=== PATIENT | female | born 1950 | race African-American/Black ===

== ENCOUNTER 2018-04-05 12:37 | Inpatient (IN) | payer MEDICARE, MEDICAID ==
[~2018-04-05] VITALS: Ht 162.6 cm; Wt 79.8 kg
[2018-04-05] MEDS ORDERED: AZITHROMYCIN 500MG/ 250ML 250 ML IV ONE (14:30)
[2018-04-05] MEDS ORDERED: FUROSEMIDE 40 MG/4 ML VIAL IV ONE ×2 (14:30→16:45)
[2018-04-05] MEDS ORDERED: cefTRIAXone 1GM/10ml IVPUSH 10 ML IV ONE (14:30)
[2018-04-05 14:42] LABS: Basophils # (auto) 0 uL; Eosinophils # (auto) 0 uL; Eosinophils % (auto) 0.1 % (0.0-7.0); Hemoglobin 11.8 g/dL (12.2-16.2); Lymphocytes # (auto) 1.2 uL; Neutrophils # (auto) 8.3 uL
[2018-04-05 14:44] LABS: Basophils % (auto) 0.3 % (0.0-2.0); Hematocrit 37.3 % (36.0-46.0); Lymphocytes % (auto) 11.3 % (10.0-50.0); Mean Corpuscular Hemoglobin 25.4 pg (28.0-32.0); Mean Corpuscular Hgb Conc. 31.7 g/dL (32.0-36.0); Mean Corpuscular Volume 80.2 fL (80.0-100.0); Monocytes % (auto) 9.6 % (0.0-12.0); Neutrophils % (auto) 78.7 % (37.0-80.0); Nucleated Red Blood Cells % 0.1 %; Platelet Count (auto) 314 10^3/uL (140-450); Red Blood Cells 4.65 10^6/uL (4.0-5.20); Red Cell Distribution Width 16.7 % (11.8-14.3); White Blood Cell 10.6 10^3/uL (4.4-10.8)
[2018-04-05 14:58] LABS: Potassium 3.9 mmol/L (3.5-5.1)
[2018-04-05 15:03] LABS: Albumin 2.9 g/dL (3.4-5.0); BUN/Creatinine Ratio 20.8; Calcium 8.5 mg/dL (8.5-10.1); Magnesium 2.4 mg/dL (1.6-2.6)
[2018-04-05 15:22] LABS: Bilirubin, Total 0.8 mg/dL (0.2-1.0); Total Protein 6.8 g/dL (6.4-8.2)
[2018-04-05] MEDS ORDERED: ENOXAPARIN SOD 80 MG/0.8ML SYRINGE SC ONE ×2 (16:00→16:45)
[2018-04-05] MEDS ORDERED: MORPHINE SULFATE 4 MG/ML SYR/VIAL IV PRN ×2 (16:15)
[2018-04-05] MEDS ORDERED: ALUM & MAG HYDROX-SIMETH LIQ(MAALOX) 30 ML PO ONE (16:15)
[2018-04-05] MEDS ORDERED: LORazepam 0.5 MG TAB PO PRN (16:15)
[2018-04-05] MEDS ORDERED: ONDANSETRON HCL 4 MG/2 ML VIAL IV PRN (16:15)
[2018-04-05] MEDS ORDERED: ZOLPIDEM TARTRATE 5 MG TAB PO PRN (16:15)
[2018-04-05] MEDS ORDERED: ACETAMINOPHEN 325 MG TAB PO PRN (16:15)
[2018-04-05] MEDS ORDERED: NITROGLYCERIN 0.4 MG SL TAB SL PRN ×2 (16:15)
[2018-04-05] MEDS ORDERED: ENALAPRIL MALEATE 2.5 MG TAB PO ONE (16:45)
[2018-04-05] MEDS ORDERED: POTASSIUM CHL 10 Meq TABLET PO ONE (16:45)
[2018-04-05] MEDS ORDERED: DOCUSATE SOD 100 MG CAP PO ONE (16:45)
[2018-04-05] MEDS ORDERED: ASPirin 81 mg TAB PO ONE (16:45)
[2018-04-05] MEDS ORDERED: cloNIDine HCL 0.1 MG TAB PO PRN (16:45)
[2018-04-05] MEDS ORDERED: CARVEDILOL 3.125 MG TAB PO ONE (16:45)
[2018-04-05] MEDS ORDERED: CLOPIDOGREL BISULFATE 75 MG TAB PO ONE (16:45)
[2018-04-05] MEDS: IPRATROPIUM BROM 0.5 MG/2.5ML INH SOL NEB SCH (18:10)
[2018-04-05] MEDS: ALBUTEROL SULF 2.5 MG/0.5ML(0.5%) NEB SOLN NEB SCH (18:10)
[2018-04-05] MEDS: FUROSEMIDE 40 MG/4 ML VIAL IV SCH (18:25)
[2018-04-05] MEDS: Ensure Enlive Strawberry 8oz Bottle PO SCH (18:30)
[2018-04-05 19:56] VITALS: BP 156/92
[2018-04-05 20:59] LABS: Urine Bacteria NONE SEEN /hpf (None Seen); Urine Blood Negative /uL (Negative); Urine Specific Gravity 1.004 (1.001-1.035); Urine WBC <1 /hpf (0 - 5)
[2018-04-05 21:21] LABS: INR 1.13 (0.9-1.15)
[2018-04-05] MEDS ORDERED: ENOXAPARIN SOD 80 MG/0.8ML SYRINGE SC SCH (22:00)
[2018-04-05] MEDS: SODIUM CHLOR 0.9% PF (SALINE LOCK) 10ML VIAL/SYR IV SCH (22:00)
[2018-04-05] MEDS: POTASSIUM CHL 10 Meq TABLET PO SCH (22:48)
[2018-04-05] MEDS: ATORVASTATIN 20 MG TAB PO SCH (22:48)
[2018-04-05] MEDS: ENALAPRIL MALEATE 2.5 MG TAB PO SCH (22:49)
[2018-04-05] MEDS: CARVEDILOL 3.125 MG TAB PO SCH (22:49)
[2018-04-06] VITALS (20 sets, daily range): BP systolic 116–151; BP diastolic 59–97
[2018-04-06] MEDS: IPRATROPIUM BROM 0.5 MG/2.5ML INH SOL NEB SCH ×4 (01:06→19:28)
[2018-04-06] MEDS: ALBUTEROL SULF 2.5 MG/0.5ML(0.5%) NEB SOLN NEB SCH ×3 (01:06→12:00)
[2018-04-06 05:31] LABS: Basophils # (auto) 0 uL; Mean Corpuscular Hemoglobin 25.3 pg (28.0-32.0); Mean Corpuscular Volume 79.7 fL (80.0-100.0); Monocytes # (auto) 0.9 uL; Neutrophils # (auto) 6.9 uL; Nucleated Red Blood Cells % 0.1 %; Red Blood Cells 4.52 10^6/uL (4.0-5.20)
[2018-04-06 05:34] LABS: Basophils % (auto) 0.1 % (0.0-2.0); Eosinophils # (auto) 0 uL; Eosinophils % (auto) 0.5 % (0.0-7.0); Hematocrit 36.1 % (36.0-46.0); Hemoglobin 11.5 g/dL (12.2-16.2); Lymphocytes # (auto) 1.2 uL; Mean Corpuscular Hgb Conc. 31.8 g/dL (32.0-36.0); Neutrophils % (auto) 76.4 % (37.0-80.0); Platelet Count (auto) 282 10^3/uL (140-450); Red Cell Distribution Width 16.6 % (11.8-14.3)
[2018-04-06] MEDS: SODIUM CHLOR 0.9% PF (SALINE LOCK) 10ML VIAL/SYR IV SCH ×3 (06:05→21:20)
[2018-04-06] MEDS: FUROSEMIDE 40 MG/4 ML VIAL IV SCH ×2 (06:06→18:08)
[2018-04-06 06:08] LABS: Albumin 2.7 g/dL (3.4-5.0); BUN/Creatinine Ratio 24.6; Bilirubin, Total 0.6 mg/dL (0.2-1.0); Calcium 8.8 mg/dL (8.5-10.1); Magnesium 2.2 mg/dL (1.6-2.6); Potassium 4.3 mmol/L (3.5-5.1); Total Protein 6.3 g/dL (6.4-8.2)
[2018-04-06] MEDS: Ensure Enlive Strawberry 8oz Bottle PO SCH ×3 (08:00→18:00)
[2018-04-06] MEDS ORDERED: cefTRIAXone 1GM/10ml IVPUSH 10 ML IV SCH (09:00)
[2018-04-06] MEDS ORDERED: CLOPIDOGREL BISULFATE 75 MG TAB PO SCH (10:00)
[2018-04-06] MEDS ORDERED: DOCUSATE SOD 100 MG CAP PO SCH (10:00)
[2018-04-06] MEDS ORDERED: AZITHROMYCIN 500MG/ 250ML 250 ML IV SCH (10:00)
[2018-04-06] MEDS: ASPirin 81 mg TAB PO SCH (10:07)
[2018-04-06] MEDS: CARVEDILOL 3.125 MG TAB PO SCH (10:08)
[2018-04-06] MEDS: POTASSIUM CHL 10 Meq TABLET PO SCH ×2 (10:08→21:20)
[2018-04-06] MEDS: ENALAPRIL MALEATE 2.5 MG TAB PO SCH (10:09)
[2018-04-06] MEDS: ENOXAPARIN SOD 80 MG/0.8ML SYRINGE SC SCH ×2 (10:09→21:20)
[2018-04-06] MEDS: DOBUTamine 1000MCG/ML 250 ML IV SCH (14:15)
[2018-04-06] MEDS ORDERED: SPIRONOLACTONE 25 MG TAB PO ONE (14:15)
[2018-04-06] MEDS ORDERED: DIGOXIN 0.25 MG TAB PO ONE (14:15)
[2018-04-06] MEDS: SPIRONOLACTONE 25 MG TAB PO SCH (18:09)
[2018-04-06] MEDS: ATORVASTATIN 20 MG TAB PO SCH (21:20)
[2018-04-07] VITALS: BP 146/82
[2018-04-07] MEDS: IPRATROPIUM BROM 0.5 MG/2.5ML INH SOL NEB SCH ×4 (00:30→18:12)
[2018-04-07 04:00] VITALS: BP 153/76
[2018-04-07 05:53] LABS: Basophils % (auto) 0.2 % (0.0-2.0); Eosinophils % (auto) 1.1 % (0.0-7.0); Lymphocytes % (auto) 14.4 % (10.0-50.0); Monocytes % (auto) 9.5 % (0.0-12.0); Neutrophils % (auto) 74.8 % (37.0-80.0); White Blood Cell 7.8 10^3/uL (4.4-10.8)
[2018-04-07 05:54] LABS: Basophils # (auto) 0 uL; Eosinophils # (auto) 0.1 uL; Hematocrit 37.5 % (36.0-46.0); Hemoglobin 12.1 g/dL (12.2-16.2); Lymphocytes # (auto) 1.1 uL; Monocytes # (auto) 0.7 uL; Neutrophils # (auto) 5.8 uL; Nucleated Red Blood Cells % 0.1 %; Red Blood Cells 4.77 10^6/uL (4.0-5.20)
[2018-04-07 05:55] LABS: Mean Corpuscular Hemoglobin 25.3 pg (28.0-32.0); Mean Corpuscular Hgb Conc. 32.2 g/dL (32.0-36.0); Mean Corpuscular Volume 78.5 fL (80.0-100.0); Platelet Count (auto) 319 10^3/uL (140-450); Red Cell Distribution Width 16.3 % (11.8-14.3)
[2018-04-07 05:56] LABS: BUN/Creatinine Ratio 27.3; Calcium 8.8 mg/dL (8.5-10.1); Magnesium 2.3 mg/dL (1.6-2.6); Potassium 3.7 mmol/L (3.5-5.1)
[2018-04-07] MEDS: SODIUM CHLOR 0.9% PF (SALINE LOCK) 10ML VIAL/SYR IV SCH ×3 (06:29→21:26)
[2018-04-07] MEDS: FUROSEMIDE 40 MG/4 ML VIAL IV SCH ×2 (06:29→18:26)
[2018-04-07] MEDS: SPIRONOLACTONE 25 MG TAB PO SCH ×2 (06:30→18:26)
[2018-04-07 08:00] VITALS: BP 153/65
[2018-04-07] MEDS: Ensure Enlive Strawberry 8oz Bottle PO SCH ×3 (09:47→18:27)
[2018-04-07] MEDS: ENOXAPARIN SOD 80 MG/0.8ML SYRINGE SC SCH (10:04)
[2018-04-07] MEDS: ASPirin 81 mg TAB PO SCH (10:06)
[2018-04-07] MEDS: DIGOXIN 0.125 MG TAB PO SCH (10:06)
[2018-04-07] MEDS: POTASSIUM CHL 10 Meq TABLET PO SCH ×2 (10:07→21:26)
[2018-04-07] MEDS: NITROGLYCERIN 0.2MG/HR TOPICAL PATCH TD SCH (10:08)
[2018-04-07] MEDS: DOBUTamine 1000MCG/ML 250 ML IV SCH (11:53)
[2018-04-07 11:57] VITALS: BP 155/88
[2018-04-07 15:51] VITALS: BP 110/80
[2018-04-07 19:54] VITALS: BP 150/72
[2018-04-07] MEDS: ATORVASTATIN 20 MG TAB PO SCH (21:26)
[2018-04-08] VITALS (7 sets, daily range): BP systolic 101–151; BP diastolic 59–79
[2018-04-08] MEDS: IPRATROPIUM BROM 0.5 MG/2.5ML INH SOL NEB SCH ×4 (00:22→19:37)
[2018-04-08] MEDS: SODIUM CHLOR 0.9% PF (SALINE LOCK) 10ML VIAL/SYR IV SCH ×3 (05:33→22:11)
[2018-04-08] MEDS: FUROSEMIDE 40 MG/4 ML VIAL IV SCH ×2 (05:33→17:48)
[2018-04-08] MEDS: SPIRONOLACTONE 25 MG TAB PO SCH ×2 (05:33→17:46)
[2018-04-08 05:39] LABS: BUN/Creatinine Ratio 27.4; Calcium 8.9 mg/dL (8.5-10.1); Potassium 4.2 mmol/L (3.5-5.1)
[2018-04-08 07:30] LABS: Basophils # (auto) 0 uL; Eosinophils # (auto) 0.1 uL; Lymphocytes # (auto) 1.1 uL
[2018-04-08 07:33] LABS: Basophils % (auto) 0.3 % (0.0-2.0); Eosinophils % (auto) 1.9 % (0.0-7.0); Lymphocytes % (auto) 15.2 % (10.0-50.0); Mean Corpuscular Hemoglobin 25.4 pg (28.0-32.0); Mean Corpuscular Hgb Conc. 32.4 g/dL (32.0-36.0); Mean Corpuscular Volume 78.4 fL (80.0-100.0); Monocytes # (auto) 0.9 uL; Monocytes % (auto) 13.5 % (0.0-12.0); Neutrophils # (auto) 4.8 uL; Neutrophils % (auto) 69.1 % (37.0-80.0); Nucleated Red Blood Cells % 0.1 %; Platelet Count (auto) 329 10^3/uL (140-450); Red Blood Cells 4.72 10^6/uL (4.0-5.20); Red Cell Distribution Width 16.3 % (11.8-14.3)
[2018-04-08] MEDS: ENOXAPARIN SOD 40 MG/0.4 ML SYRINGE SC SCH (10:00)
[2018-04-08] MEDS: ASPirin 81 mg TAB PO SCH (10:00)
[2018-04-08] MEDS: DIGOXIN 0.125 MG TAB PO SCH (10:52)
[2018-04-08] MEDS: Ensure Enlive Strawberry 8oz Bottle PO SCH ×3 (10:53→17:49)
[2018-04-08] MEDS: POTASSIUM CHL 10 Meq TABLET PO SCH ×2 (10:53→22:11)
[2018-04-08] MEDS: DOBUTamine 1000MCG/ML 250 ML IV SCH (10:53)
[2018-04-08] MEDS: NITROGLYCERIN 0.2MG/HR TOPICAL PATCH TD SCH (10:59)
[2018-04-08] MEDS ORDERED: ACETYLCYSTEINE ORAL for CIN 20%(200MG/ML) 4ML PO ONE (11:45)
[2018-04-08] MEDS ORDERED: SACUBITRIL-VALSARTAN 24mg/26mg TAB PO ONE (12:00)
[2018-04-08] MEDS: ATORVASTATIN 20 MG TAB PO SCH (22:11)
[2018-04-08] MEDS: SACUBITRIL-VALSARTAN 24mg/26mg TAB PO SCH (22:11)
[2018-04-08] MEDS: ACETYLCYSTEINE ORAL for CIN 20%(200MG/ML) 4ML PO SCH (22:12)
[2018-04-09] VITALS (15 sets, daily range): BP systolic 97–149; BP diastolic 38–109
[2018-04-09] MEDS: IPRATROPIUM BROM 0.5 MG/2.5ML INH SOL NEB SCH ×5 (01:09→23:32)
[2018-04-09 05:32] LABS: Hemoglobin 13.3 g/dL (12.2-16.2)
[2018-04-09 05:35] LABS: Hematocrit 41.6 % (36.0-46.0)
[2018-04-09 05:46] LABS: BUN/Creatinine Ratio 26.5; Calcium 9.4 mg/dL (8.5-10.1); Potassium 4.5 mmol/L (3.5-5.1)
[2018-04-09] MEDS: FUROSEMIDE 40 MG/4 ML VIAL IV SCH ×2 (06:50→18:00)
[2018-04-09] MEDS: SPIRONOLACTONE 25 MG TAB PO SCH ×2 (06:50→18:00)
[2018-04-09] MEDS: SODIUM CHLOR 0.9% PF (SALINE LOCK) 10ML VIAL/SYR IV SCH ×3 (06:50→22:17)
[2018-04-09] MEDS: Ensure Enlive Strawberry 8oz Bottle PO SCH ×3 (08:30→18:00)
[2018-04-09] MEDS: POTASSIUM CHL 10 Meq TABLET PO SCH (10:40)
[2018-04-09] MEDS: ASPirin 81 mg TAB PO SCH (10:40)
[2018-04-09] MEDS: NITROGLYCERIN 0.2MG/HR TOPICAL PATCH TD SCH (10:40)
[2018-04-09] MEDS: ENOXAPARIN SOD 40 MG/0.4 ML SYRINGE SC SCH (10:41)
[2018-04-09] MEDS: SACUBITRIL-VALSARTAN 24mg/26mg TAB PO SCH ×2 (10:41→22:26)
[2018-04-09] MEDS: DIGOXIN 0.125 MG TAB PO SCH (10:41)
[2018-04-09] MEDS: ACETYLCYSTEINE ORAL for CIN 20%(200MG/ML) 4ML PO SCH ×2 (10:43→22:26)
[2018-04-09] MEDS ORDERED: IOHEXOL 350 MG/ML 100ML IJ ONE (14:22)
[2018-04-09] MEDS ORDERED: LIDOCAINE 2%HCL (LOCAL ANESTH.) INJ 20ML MDV ONE (14:22)
[2018-04-09] MEDS ORDERED: LIDOCAINE 2% (LOCAL ANESTH.) PF 5ml SDV ONE (15:37)
[2018-04-09] MEDS ORDERED: IODIXANOL 320MG/ML 100ML BTL IV ONE (15:38)
[2018-04-09] MEDS ORDERED: fentaNYL CITRATE 100 MCG/2 ML VL ONE (16:07)
[2018-04-09] MEDS ORDERED: MIDAZOLAM HCL 1MG/1ML-2 ML VIAL ONE (16:08)
[2018-04-09] MEDS ORDERED: TICAGRELOR 90 MG TAB ONE (16:46)
[2018-04-09] MEDS ORDERED: ASPirin 325 MG TAB ONE (16:46)
[2018-04-09 22:00] LABS: Basophils # (auto) 0 uL; Eosinophils # (auto) 0.1 uL; Eosinophils % (auto) 1.2 % (0.0-7.0); Hematocrit 41.1 % (36.0-46.0); Lymphocytes # (auto) 0.8 uL; Neutrophils # (auto) 5.9 uL; Platelet Count (auto) 364 10^3/uL (140-450); White Blood Cell 7.8 10^3/uL (4.4-10.8)
[2018-04-09 22:01] LABS: Basophils % (auto) 0.4 % (0.0-2.0); Hemoglobin 13.2 g/dL (12.2-16.2); Mean Corpuscular Hemoglobin 25.1 pg (28.0-32.0); Mean Corpuscular Hgb Conc. 32.1 g/dL (32.0-36.0); Mean Corpuscular Volume 78.4 fL (80.0-100.0); Neutrophils % (auto) 75.4 % (37.0-80.0); Nucleated Red Blood Cells % 0.1 %; Red Blood Cells 5.24 10^6/uL (4.0-5.20); Red Cell Distribution Width 16.5 % (11.8-14.3)
[2018-04-09] MEDS: ATORVASTATIN 20 MG TAB PO SCH (22:26)
[2018-04-10] VITALS: BP 125/91
[2018-04-10 04:00] VITALS: BP 115/72
[2018-04-10 05:53] LABS: BUN/Creatinine Ratio 29.2; Calcium 9.1 mg/dL (8.5-10.1); Potassium 4.3 mmol/L (3.5-5.1)
[2018-04-10] MEDS: SPIRONOLACTONE 25 MG TAB PO SCH ×2 (06:00→18:42)
[2018-04-10] MEDS: FUROSEMIDE 40 MG/4 ML VIAL IV SCH ×2 (06:00→18:43)
[2018-04-10] MEDS: SODIUM CHLOR 0.9% PF (SALINE LOCK) 10ML VIAL/SYR IV SCH ×3 (06:15→21:47)
[2018-04-10] MEDS: IPRATROPIUM BROM 0.5 MG/2.5ML INH SOL NEB SCH ×3 (06:18→18:52)
[2018-04-10 08:00] VITALS: BP 117/72
[2018-04-10] MEDS: Ensure Enlive Strawberry 8oz Bottle PO SCH ×3 (08:00→18:38)
[2018-04-10] MEDS: ENOXAPARIN SOD 40 MG/0.4 ML SYRINGE SC SCH (10:51)
[2018-04-10] MEDS: ASPirin 81 mg TAB PO SCH (10:52)
[2018-04-10] MEDS: TICAGRELOR 90 MG TAB PO SCH ×2 (10:52→21:47)
[2018-04-10] MEDS: DIGOXIN 0.125 MG TAB PO SCH (10:52)
[2018-04-10] MEDS: NITROGLYCERIN 0.2MG/HR TOPICAL PATCH TD SCH (10:53)
[2018-04-10] MEDS: SACUBITRIL-VALSARTAN 24mg/26mg TAB PO SCH ×2 (10:53→21:47)
[2018-04-10] MEDS: ACETYLCYSTEINE ORAL for CIN 20%(200MG/ML) 4ML PO SCH ×2 (10:54→21:46)
[2018-04-10 11:45] VITALS: BP 139/90
[2018-04-10] MEDS ORDERED: SACUBITRIL-VALSARTAN 24mg/26mg TAB PO ONE (14:15)
[2018-04-10] MEDS: ATORVASTATIN 20 MG TAB PO SCH (21:47)
[2018-04-10 22:00] VITALS: BP 124/67
[2018-04-11] MEDS: IPRATROPIUM BROM 0.5 MG/2.5ML INH SOL NEB SCH ×3 (00:07→11:34)
[2018-04-11 05:00] VITALS: BP 128/65
[2018-04-11] MEDS: SPIRONOLACTONE 25 MG TAB PO SCH ×2 (06:29→18:00)
[2018-04-11] MEDS: FUROSEMIDE 40 MG/4 ML VIAL IV SCH ×2 (06:29→18:00)
[2018-04-11] MEDS: SODIUM CHLOR 0.9% PF (SALINE LOCK) 10ML VIAL/SYR IV SCH ×2 (06:29→14:00)
[2018-04-11] MEDS: Ensure Enlive Strawberry 8oz Bottle PO SCH ×3 (08:11→18:00)
[2018-04-11] MEDS: ASPirin 81 mg TAB PO SCH (09:19)
[2018-04-11] MEDS: ENOXAPARIN SOD 40 MG/0.4 ML SYRINGE SC SCH (09:19)
[2018-04-11] MEDS: SACUBITRIL-VALSARTAN 24mg/26mg TAB PO SCH (09:20)
[2018-04-11] MEDS: DIGOXIN 0.125 MG TAB PO SCH (09:20)
[2018-04-11] MEDS: NITROGLYCERIN 0.2MG/HR TOPICAL PATCH TD SCH (09:21)
[2018-04-11] MEDS: ACETYLCYSTEINE ORAL for CIN 20%(200MG/ML) 4ML PO SCH ×2 (09:41→09:49)
[2018-04-11] MEDS: TICAGRELOR 90 MG TAB PO SCH (09:49)
[2018-04-11 09:59] VITALS: BP 114/71
[2018-04-11 13:37] VITALS: BP 102/56
[2018-04-11 17:14] VITALS: BP 128/77
[2018-04-11 17:34] VITALS: BP 128/77
[2018-04-11] MEDS ORDERED: IPRATROPIUM BROM 0.5 MG/2.5ML INH SOL ONE (17:57)
== END 2018-04-11 18:03 | disposition home or self-care (01) | DRG 175 ==
LOC: ER 12:37 → OVERFLOW 12:38 → DOU IN ICU 23:36 → TELE-WESTW 04-10 14:23
PROVIDERS: ADMIT Internal Medicine; ATTEND Internal Medicine
PROC: 027136Z Dilation of Coronary Artery, Two Arteries with Three Drug-eluting Intraluminal Devices, Percutaneous Approach (ICD-10-PCS; principal; 2018-04-09)
PROC: 4A023N7 Measurement of Cardiac Sampling and Pressure, Left Heart, Percutaneous Approach (ICD-10-PCS; 2018-04-09)
PROC: B2111ZZ Fluoroscopy of Multiple Coronary Arteries using Low Osmolar Contrast (ICD-10-PCS; 2018-04-09)
PROC: B2151ZZ Fluoroscopy of Left Heart using Low Osmolar Contrast (ICD-10-PCS; 2018-04-09)
DX: I13.0 Hypertensive heart and chronic kidney disease with heart failure and stage 1 through stage 4 chronic kidney disease, or unspecified chronic kidney disease (principal); I21.A1 Myocardial infarction type 2; J96.00 Acute respiratory failure, unspecified whether with hypoxia or hypercapnia; E44.0 Moderate protein-calorie malnutrition; J18.9 Pneumonia, unspecified organism; J44.0 Chronic obstructive pulmonary disease with (acute) lower respiratory infection; N17.9 Acute kidney failure, unspecified; I25.82 Chronic total occlusion of coronary artery; J45.901 Unspecified asthma with (acute) exacerbation; I42.0 Dilated cardiomyopathy; N18.3 Chronic kidney disease, stage 3 (moderate); E78.5 Hyperlipidemia, unspecified; I50.43 Acute on chronic combined systolic (congestive) and diastolic (congestive) heart failure; J44.1 Chronic obstructive pulmonary disease with (acute) exacerbation; D50.9 Iron deficiency anemia, unspecified; F17.210 Nicotine dependence, cigarettes, uncomplicated; I25.10 Atherosclerotic heart disease of native coronary artery without angina pectoris; Z79.899 Other long term (current) drug therapy; Z82.49 Family history of ischemic heart disease and other diseases of the circulatory system; Z79.82 Long term (current) use of aspirin; Z68.30 Body mass index [BMI] 30.0-30.9, adult
CPT/HCPCS: 36415; 71045; 71046; 80048; 80053; 80061; 80162; 81001; 83540; 83605; 83735; 83880; 84443; 84484; 85014; 85018; 85025; 85610; 87040; 87081; 87086; 87493; 93306; 94640; 96365; 96372; 96375; 99152; A6257; C1874; J0696; J2001; J2250; Q9967

== ENCOUNTER → 2018-04-26 | Outpatient (CLI) | payer MEDICARE, MEDICAID ==
[2018-04-26 13:38] LABS: Cholesterol 170 mg/dL (< 200)
[2018-04-26 13:39] LABS: HDL Cholesterol 51 mg/dL (40-59); LDL Cholesterol 108 mg/dL (< 100); Triglycerides 128 mg/dL (< 150)
== END | disposition home or self-care (01) ==
LOC: LAB 12:17
PROVIDERS: ATTEND Internal Medicine
DX: I12.9 Hypertensive chronic kidney disease with stage 1 through stage 4 chronic kidney disease, or unspecified chronic kidney disease (principal); N18.3 Chronic kidney disease, stage 3 (moderate); J44.9 Chronic obstructive pulmonary disease, unspecified
CPT/HCPCS: 36415; 80061

== ENCOUNTER → 2018-05-31 | Outpatient (CLI) | payer MEDICARE, MEDICAID ==
[2018-05-31 09:42] LABS: Albumin 3.7 g/dL (3.4-5.0); Calcium 9.8 mg/dL (8.5-10.1); Potassium 3.8 mmol/L (3.5-5.1)
[2018-05-31 09:50] LABS: Bilirubin, Total 0.4 mg/dL (0.2-1.0); Total Protein 8.2 g/dL (6.4-8.2)
[2018-05-31 09:59] LABS: BUN/Creatinine Ratio 15.7
== END | disposition home or self-care (01) ==
LOC: LAB 08:52
PROVIDERS: ATTEND Internal Medicine
DX: I12.9 Hypertensive chronic kidney disease with stage 1 through stage 4 chronic kidney disease, or unspecified chronic kidney disease (principal); N18.3 Chronic kidney disease, stage 3 (moderate)
CPT/HCPCS: 36415; 80053; 80061

== ENCOUNTER → 2018-08-11 | Outpatient (CLI) | payer MEDICARE, MEDICAID | END | disposition home or self-care (01) | LOC: XYW 11:21 | PROVIDERS: ATTEND Internal Medicine | DX: I08.1 Rheumatic disorders of both mitral and tricuspid valves (principal); I25.10 Atherosclerotic heart disease of native coronary artery without angina pectoris | CPT/HCPCS: 93306 ==

== ENCOUNTER → 2018-08-11 | Outpatient (CLI) | payer MEDICARE, MEDICAID | END | disposition home or self-care (01) | LOC: LAB 12:17 | PROVIDERS: ATTEND Internal Medicine | DX: E11.9 Type 2 diabetes mellitus without complications (principal) | CPT/HCPCS: 36415; 83036 ==

== ENCOUNTER → 2018-12-02 | Outpatient (CLI) | payer MEDICARE, MEDICAID ==
[2018-12-02 11:18] LABS: Basophils # (auto) 0.1 uL; Basophils % (auto) 0.7 % (0.0-2.0); Eosinophils # (auto) 0.1 uL; Hemoglobin 13.5 g/dL (12.2-16.2); Lymphocytes # (auto) 1.8 uL; Mean Corpuscular Hemoglobin 25.5 pg (28.0-32.0); Neutrophils # (auto) 5.1 uL; Neutrophils % (auto) 66.2 % (37.0-80.0); Nucleated Red Blood Cells % 0.1 %; Red Cell Distribution Width 15.7 % (11.8-14.3)
[2018-12-02 11:19] LABS: Eosinophils % (auto) 1.4 % (0.0-7.0); Hematocrit 41.4 % (36.0-46.0); Lymphocytes % (auto) 22.8 % (10.0-50.0); Mean Corpuscular Hgb Conc. 32.6 g/dL (32.0-36.0); Mean Corpuscular Volume 78.3 fL (80.0-100.0); Monocytes # (auto) 0.7 uL; Monocytes % (auto) 8.9 % (0.0-12.0); Platelet Count (auto) 290 10^3/uL (140-450); Red Blood Cells 5.28 10^6/uL (4.0-5.20); White Blood Cell 7.7 10^3/uL (4.4-10.8)
[2018-12-02 11:36] LABS: Albumin 3.9 g/dL (3.4-5.0); BUN/Creatinine Ratio 20.4; Calcium 10.1 mg/dL (8.5-10.1); Potassium 4.9 mmol/L (3.5-5.1)
[2018-12-02 11:44] LABS: Bilirubin, Total 0.6 mg/dL (0.2-1.0); CRP High Sensitivity 0.67 mg/dL (< 0.3); Total Protein 8.8 g/dL (6.4-8.2)
== END | disposition home or self-care (01) ==
LOC: LAB 10:48
PROVIDERS: ATTEND Internal Medicine
DX: I10 Essential (primary) hypertension (principal); E78.5 Hyperlipidemia, unspecified; E11.9 Type 2 diabetes mellitus without complications
CPT/HCPCS: 36415; 80053; 80061; 82043; 83036; 85025; 85652; 86141; 86431

== ENCOUNTER → 2019-01-24 | Outpatient (CLI) | payer MEDICARE, MEDICAID ==
[2019-01-24 10:06] LABS: Basophils # (auto) 0 uL; Eosinophils # (auto) 0.1 uL; Lymphocytes # (auto) 1.1 uL
[2019-01-24 10:07] LABS: Basophils % (auto) 0.1 % (0.0-2.0); Eosinophils % (auto) 1.4 % (0.0-7.0); Hemoglobin 11.5 g/dL (12.2-16.2); Lymphocytes % (auto) 20.3 % (10.0-50.0); Mean Corpuscular Hemoglobin 25.4 pg (28.0-32.0); Mean Corpuscular Hgb Conc. 31.8 g/dL (32.0-36.0); Monocytes # (auto) 0.4 uL; Monocytes % (auto) 7.9 % (0.0-12.0); Neutrophils # (auto) 3.9 uL; Neutrophils % (auto) 70.3 % (37.0-80.0); Nucleated Red Blood Cells % 0.1 %; Platelet Count (auto) 330 10^3/uL (140-450); Red Blood Cells 4.51 10^6/uL (4.0-5.20); White Blood Cell 5.5 10^3/uL (4.4-10.8)
[2019-01-24 10:08] LABS: Urine Blood Negative /uL (Negative); Urine Specific Gravity 1.013 (1.001-1.035)
[2019-01-24 11:13] LABS: Calcium 9.2 mg/dL (8.5-10.1); Magnesium 2.5 mg/dL (1.6-2.6); Potassium 3.9 mmol/L (3.5-5.1)
[2019-01-24 11:15] LABS: BUN/Creatinine Ratio 14.9
[2019-01-24 13:57] LABS: Creatinine, Urine 166 mg/dL (30.0-125.0); Protein, Urine 17.8 mg/dL (0.0-11.9)
[2019-01-24 14:10] LABS: Hepatitis A Ab IgM Negative
[2019-01-24 14:11] LABS: Hepatitis B Core IgM Negative; Hepatitis B Surface Antigen Negative (Negative); Hepatitis C Antibody Negative (Negative)
== END | disposition home or self-care (01) ==
LOC: LAB 09:40
PROVIDERS: ATTEND Internal Medicine
DX: N39.0 Urinary tract infection, site not specified (principal); I13.0 Hypertensive heart and chronic kidney disease with heart failure and stage 1 through stage 4 chronic kidney disease, or unspecified chronic kidney disease; D63.1 Anemia in chronic kidney disease; N18.3 Chronic kidney disease, stage 3 (moderate); I50.9 Heart failure, unspecified; R80.9 Proteinuria, unspecified; R79.82 Elevated C-reactive protein (CRP); R76.0 Raised antibody titer; B17.9 Acute viral hepatitis, unspecified; E21.3 Hyperparathyroidism, unspecified; R73.09 Other abnormal glucose
CPT/HCPCS: 36415; 80048; 80074; 81003; 82570; 83036; 83735; 84156; 85025

== ENCOUNTER → 2019-02-09 | Outpatient (CLI) | payer MEDICARE, MEDICAID ==
[2019-02-09 11:03] LABS: Albumin 3.3 g/dL (3.4-5.0); BUN/Creatinine Ratio 20.1; Calcium 8.7 mg/dL (8.5-10.1); Potassium 3.7 mmol/L (3.5-5.1)
[2019-02-09 11:06] LABS: Bilirubin, Total 0.2 mg/dL (0.2-1.0); Total Protein 7.4 g/dL (6.4-8.2)
== END | disposition home or self-care (01) ==
LOC: LAB 10:23
PROVIDERS: ATTEND Internal Medicine
DX: J44.9 Chronic obstructive pulmonary disease, unspecified (principal); I10 Essential (primary) hypertension; E78.5 Hyperlipidemia, unspecified
CPT/HCPCS: 36415; 80053

== ENCOUNTER → 2019-03-18 | Outpatient (CLI) | payer MEDICARE, MEDICAID ==
[2019-03-18 15:44] LABS: Albumin 3.6 g/dL (3.4-5.0); Potassium 3.5 mmol/L (3.5-5.1)
[2019-03-18 15:50] LABS: BUN/Creatinine Ratio 16.3; Bilirubin, Total 0.4 mg/dL (0.2-1.0); Total Protein 7.8 g/dL (6.4-8.2)
== END | disposition home or self-care (01) ==
LOC: LAB 13:37
PROVIDERS: ATTEND Internal Medicine
DX: Z12.11 Encounter for screening for malignant neoplasm of colon (principal); E78.5 Hyperlipidemia, unspecified; I10 Essential (primary) hypertension; J44.9 Chronic obstructive pulmonary disease, unspecified
CPT/HCPCS: 36415; 80053; 80061

== ENCOUNTER → 2019-03-29 | Outpatient (CLI) | payer MEDICARE, MEDICAID | END | disposition home or self-care (01) | LOC: LAB 12:32 | PROVIDERS: ATTEND Internal Medicine | DX: Z12.11 Encounter for screening for malignant neoplasm of colon (principal); E78.5 Hyperlipidemia, unspecified; I10 Essential (primary) hypertension; J44.9 Chronic obstructive pulmonary disease, unspecified | CPT/HCPCS: 82270 ==

== ENCOUNTER → 2019-04-27 | Outpatient (CLI) | payer MEDICARE, MEDICAID ==
[2019-04-27 11:17] LABS: Potassium 3.8 mmol/L (3.5-5.1)
[2019-04-27 11:21] LABS: BUN/Creatinine Ratio 14.8
== END | disposition home or self-care (01) ==
LOC: LAB 09:43
PROVIDERS: ATTEND Internal Medicine
DX: E11.9 Type 2 diabetes mellitus without complications (principal); I10 Essential (primary) hypertension
CPT/HCPCS: 36415; 80048; 83036

== ENCOUNTER → 2019-08-22 | Outpatient (CLI) | payer MEDICARE ==
[2019-08-22 10:16] LABS: Basophils # (auto) 0 uL; Eosinophils # (auto) 0.1 uL; Eosinophils % (auto) 1.5 % (0.0-7.0); Monocytes # (auto) 0.7 uL; Neutrophils # (auto) 3.9 uL; Nucleated Red Blood Cells % 0.1 %; Platelet Count (auto) 320 10^3/uL (140-450)
[2019-08-22 10:18] LABS: Basophils % (auto) 0.7 % (0.0-2.0); Hematocrit 36.4 % (36.0-46.0); Hemoglobin 11.5 g/dL (12.2-16.2); Mean Corpuscular Hemoglobin 25.7 pg (28.0-32.0); Mean Corpuscular Hgb Conc. 31.7 g/dL (32.0-36.0); Mean Corpuscular Volume 81.1 fL (80.0-100.0); Monocytes % (auto) 11.9 % (0.0-12.0); Neutrophils % (auto) 68.9 % (37.0-80.0); Red Blood Cells 4.49 10^6/uL (4.0-5.20); Red Cell Distribution Width 18.8 % (11.8-14.3); White Blood Cell 5.7 10^3/uL (4.4-10.8)
[2019-08-22 10:54] LABS: Cholesterol 136 mg/dL (< 200)
[2019-08-22 10:57] LABS: HDL Cholesterol 39 mg/dL (40-59); LDL Cholesterol 81 mg/dL (< 100); Triglycerides 112 mg/dL (< 150)
== END | disposition home or self-care (01) ==
LOC: LAB 09:55
PROVIDERS: ATTEND Internal Medicine
DX: E11.9 Type 2 diabetes mellitus without complications (principal); J44.9 Chronic obstructive pulmonary disease, unspecified; E78.5 Hyperlipidemia, unspecified
CPT/HCPCS: 36415; 80061; 82043; 83036; 85025